=== PATIENT | male | born 1975 | race Caucasian/White ===

== ENCOUNTER → 2022-05-12 10:35 | Outpatient (CLI) | payer OTHER, SELFPAY ==
--- NOTE | 2022-05-12 10:48 | DI.MRI.S_ITS ---
PROCEDURE: MR ANKLE RT WO CON INDICATIONS: JOINT DISORDERS, RIGHT ANKLE TECHNIQUE: Noncontrast sagittal T1 spin echo and T2 fast spin echo with fat saturation, axial proton density fast spin echo and T2 fast spin echo with fat saturation, coronal T1 spin echo and T2 fast spin echo with fat saturation through the ankle/hindfoot. COMPARISON: None. FINDINGS: Image quality: Excellent. Bones and joints: Osteochondral injury in medial weight-bearing portion of talar dome is seen measures 4 x 4 x 7 mm in size with mild surrounding edema. No fracture or dislocation. No other area of abnormal marrow signal. No suspicious intraosseous lesion. No significant joint effusion is seen. Medial structures: The posterior tibialis is mildly thickened at the level of distal talus/talonavicular joint with small amount of fluid distending tendon sheath. The flexor digitorum longus, and flexor hallucis longus tendons are intact. The posterior tibial neurovascular bundle appears normal within the tarsal tunnel, without extrinsic mass effect. Thickened deltoid ligament and spring ligament complex is noted suggestive of medial ankle ligament sprain/low-grade partial-thickness tear. Lateral structures: The anterior talofibular, calcaneofibular, and posterior talofibular ligaments appear slightly attenuated with intrasubstance T2 hyperintense signal. More superiorly, the anterior and posterior tibiofibular ligaments appear intact, as is the intermalleolar ligament. The tibiofibular syndesmosis is normal in width at 2 mm or less. The peroneus longus and brevis tendons demonstrate normal location and morphology. Adjacent bony peroneal tubercle and retrotrochlear prominence are normal in size. The sinus tarsi demonstrates normal fatty signal, without edema, fibrosis, or cyst formation. Visualized sinus tarsi components (cervical ligament, interosseous talocalcaneal ligament, roots of the inferior extensor retinaculum) appear normal. The calcaneonavicular and calcaneocuboid components of the bifurcate ligament appear intact. The dorsal calcaneocuboid ligament appears intact. Anterior structures: The tibialis anterior, extensor hallucis longus, and extensor digitorum longus tendons appear intact. The dorsal talonavicular ligament appears intact. Posterior and plantar structures: Achilles tendon is intact. Medial and lateral bands of the plantar fascia are of normal thickness. No abductor digiti quinti muscle atrophy to suggest Millan neuropathy. IMPRESSION: 1. 4 x 4 x 7 mm osteochondral injury involving medial weight-bearing portion of talar dome. No other area of abnormal marrow signal. No fracture or dislocation. No significant joint effusion. 2. [id number] medial ankle ligament sprain/partial-thickness tear. Low-grade tenosynovitis involving posterior tibialis tendon at the level of distal talus/talonavicular joint. 3. Mild lateral ankle ligament sprain/partial-thickness tear. Dictated by: David Ellis M.D. on 05/12/2022 at 13:24 Approved by: David Ellis M.D. on 05/12/2022 at 13:27
== END ==
PROVIDERS: PCP Internal Medicine; Referring Provider Internal Medicine; Visit Provider Internal Medicine
DX: S93.491A Sprain of other ligament of right ankle, initial encounter (principal); M65.871 Other synovitis and tenosynovitis, right ankle and foot; M25.871 Other specified joint disorders, right ankle and foot
CPT/HCPCS: 73721

== ENCOUNTER 2023-05-08 10:41 | Day surgery (SDC) | payer OTHER, SELFPAY ==
[2023-05-05 14:57] VITALS: BMI 35.5
[2023-05-08] VITALS (7 sets, daily range): BP systolic 105–150; BP diastolic 74–99; PULSE 63–99; RESP 15–19; TEMP 36.1–36.4; O2SAT 92–98; BMI 35.5
[2023-05-08] MEDS: LACTATED RINGERS 1,000 ML 42 ML IV ×2 (13:28→17:32)
--- NOTE | 2023-05-08 14:23 | P.HP_ITS ---
History of Present Illness History of Present Illness Date Patient Seen: 05/08/23 Time Patient Seen: 14:23 Chief complaint: Right Arthroscopy Ankle/Ankle Stabilization Narrative: 47-year-old male 4 years of ankle pain no particular injury but constant pain with weight-bearing and recurrent instability. Had an MRI that demonstrated sequela of an ankle sprain and small medial talar dome osteochondral lesion. Endorses pain has been getting worse over the last year and his ankle has been giving out more including rolling. He had a diagnostic and therapeutic injection last year that did not provide any significant relief. This is pain and instability. Medical history of hypertension. Completed more than 3 months of focused ankle physical therapy with continued pain [facility] Medical History Back pain Carpal tunnel syndrome Epicondylitis, lateral, right HTN (hypertension) Insulin resistance Onychomycosis Surgical History History of cholecystectomy Social History household members: family Smoking Status: Never smoker alcohol intake: former Meds Home Medications and Allergies Home Medications Medication Instructions Recorded Confirmed Type lisinopril 20 mg tablet 20 mg PO DAILY 05/08/23 05/08/23 History triamterene-hydrochlorothiazid 25 mg PO DAILY 05/08/23 05/08/23 History Allergies Allergy/AdvReac Type Severity Reaction Status Date / Time bee venom protein (honey bee) Allergy Verified 05/05/23 15:12 Review of Systems Review of Systems ROS: Yes All systems reviewed with the patient and are negative except as otherwise documented Exam Vital Signs (past 8 hours): - 05/08/23 13:04 Temperature 96.9 F L Pulse Rate 63 Respiratory Rate 18 Blood Pressure 150/99 H Pulse Oximetry 97 Oxygen Delivery Method Room Air Oxygen Delivery Method Room Air Narrative Exam Narrative: Alert oriented male no acute distress BMI 35.5. General exam oriented. No obvious distress. Cardiovascular regular rate and rhythm. Respiratory lungs clear to auscultation bilaterally. Gait full weight-bearing without assistive devices. Right lower extremity with grossly normal alignment range of motion and strength. There is tenderness to palpation anterior tibiotalar joint and the medial gutter and over the lateral ligaments. Proximally 5 mm increased anterior drawer compared to contralateral side. No subluxation or dislocation the peroneal tendons. Tenderness around the Achilles but Achilles intact and no swelling. Negative [place]. Assessment & Plan Assessment and plan (1) Right ankle instability: Status: Acute (2) Osteochondral lesion of talar dome: Status: Acute Plan Patient is a 47-year-old male with chronic right ankle pain osteochondral defect and ankle instability. He is had more episodes of giving out and instability. He did not get relief from corticosteroid injection and had extensive conservative treatment with formal physical therapy and bracing. He has been indicated for arthroscopic debridement of osteochondral lesion and ligament, laterally reconstruction. Postoperatively he will be 4 weeks nonweightbearing in the splint for the 1st 2 weeks and then in a walking boot. He will start progressive weight-bearing after 4 weeks and start weaning from the boot 8-10 weeks postop. Quality VTE Deep Vein Thrombosis/Pulmonary Embolism Present on Admission: No
--- NOTE | 2023-05-08 14:49 | SUR.PREOP ---
[]. 1442 - Monitoring initiated and maintained throughout procedure. 1143 - Time out performed. Pt placed on 2LNC. Medications given by Cj Childress CRNA. 1456 - Injection time. 1458 - Block completed. Pt remained stable throughout procedure. No adverse reactions noted.
[2023-05-08] MEDS: CEFAZOLIN 2 GM/100 ML PREMIX 100 ML IV (15:02)
--- NOTE | 2023-05-08 15:27 | SUR.OPER ---
For arthroscopy: Supine on padded OR bed, head on pillow, arms secured on padded arm boards at <90 degrees abduction, left leg on table with tape over blanket, right, operative leg on padded well leg reaves-under control of surgeon, safety belt at waist. For microfracture: Leg removed from well leg reaves and on table under control of surgeon.
[2023-05-08] MEDS: BUPIVACAINE 0.25% W/ EPI (PF) 10 ML VIAL 20 ML INJ (15:45)
--- NOTE | 2023-05-08 17:23 | P.OP_ITS ---
Operative Date/Time/Diagnoses Date of procedure: 05/08/23 Time of procedure: 15:30 Pre-op diagnosis: Osteochondral defect talus, right Instability ankle joint right Post-op diagnosis: same Procedure & Clinicians Procedure: Arthroscopic microfracture and debridement osteochondral defect talus CPT code 57134, right Repair ankle lateral ligament Brostrom Fung modification procedure CPT code [id number] for separate site, separate incision Same procedure as scheduled: Yes Indications: Patient is a 47-year-old male with a greater than 4 years of right ankle pain and worsening pain and instability with multiple recurrent rolling events. He is found to have a medial talar dome osteochondral lesion and a sequelae of ankle sprain with lateral ligament instability. He was indicated for arthroscopic debridement and microfracture talar dome lesion and Brostrom lateral ligamentous reconstruction. The risks and benefits of the procedure have been discussed with the patient and given the opportunity to ask questions. The risks of surgery include but are not limited to infection, malunion, nonunion, persistence of pain, damage to nerves and blood vessels, posttraumatic arthritis, DVT, PE, cardiopulmonary complications and . The patient expressed a thorough understanding of the risks and benefits of surgery and has elected to proceed. Consent was signed. Surgeon: Frida Recinos Click Yes if Unassisted: Yes Anesthesia Type: General, Peripheral nerve block and Local Operative Notes Findings: Small medial shoulder talar dome osteochondral defect proximally 4 x 8 mm loose osteochondral fragment removed. This was debrided with a shaver and microfractured. Separate 3 x 3 partial-thickness cartilage lesion lateral talar dome that was debrided. Mild synovitis Closure Type: primary Specimen(s): none sent Prosthetic devices, grafts, tissues, transplants, or devices: Arthrex fiber taks x2 Arthrex internal brace Estimated Blood Loss (mL): 20 Blood products transfused: none Tourniquet time (min): 78 Procedure in detail: Patient was seen in the preoperative area the site of surgery was marked informed consent confirmed. The patient was brought back to the operating room by anesthesia team. A regional block was placed for postoperative pain control by the anesthesia team. The right lower extremity was prepped and draped in the standard sterile fashion a nonsterile thigh tourniquet was applied. Formal time-out procedure was performed confirming the patient's side and site of surgery administration of appropriate preoperative antibiotic. All were in agreement Attention was turned to the ankle arthroscopy procedure. The thigh and placed in a well leg reaves that was well padded. The portal sites were marked out on the ankle and the standard anterolateral anteromedial portal. The noninvasive distractor was set up. Joint was injected with 10 cc of 0.25% Marcaine. The medial portal was established through the standard sage and spread technique. Then the lateral portal was established with care to avoid the superficial peroneal nerve branch. The arthroscopic instruments were inserted. There was mild synovitis encountered. The shaver was introduced and debrided the anterior joint. The tibiotalar joint was then inspected. The small medial shoulder osteochondral defect was then identified and debrided as mentioned in the findings. Next looking laterally there was a partial-thickness delamination laterally this was debrided and the loose cartilage fragment removed. This was not a full-thickness lesion. The medial osteochondral lesion was full- thickness. Once the medial ACL was debrided this was then micro fractured. The joint was debrided and flushed and the instruments removed. This ended the arthroscopic procedure. Attention was then turned to the Brostrom. The scope portals had been closed the well leg reaves was removed and attention was turned to the lateral ankle. Separate incision was made along the posterolateral fibula over the sinus tarsi and course of the lateral ankle ligaments. This was taken down through the skin subcutaneous tissue. The periosteum was reflected off the distal fibula. There was copious fat in this area that was debrided. The lateral ankle ligaments were attenuated these were released from the fibula reflected distally. The end of the distal fibula was debrided with a rongeur and insertion sites for the FiberTak was prepared. Next a rent in the ligament and extensor retinaculum distally was made down to the talus for the internal brace talar anchor. The guidewire was drilled and the C-arm was brought in in the lateral position to confirm appropriate placement. This was then over-drilled and tapped with the 3.5 then the 4.75 tap. The 4.75 anchor was then placed with good bite in position. This was brought up through the extensor retinaculum. Then attention was turned back to the fibula. The proposed anchor site for the 3.5 anchor for the internal brace was drilled centrally at the distal fibula and held in position while the 2 FiberTak ATFL reconstruction sites were were drilled proximally and distally to the 3.5 guide. Next the fiber tacks were placed. These each had 2 needles and FiberTape attached these were then brought through the lateral ligaments in a horizontal mattress fashion. The foot was then held in dorsiflexion eversion and the horizontal mattress sutures were tied for the Brostrom reconstruction. Next the tails for the internal brace were brought through the SwiveLock and this was taken down to the fibular hole and then measured to the distance of the anchor and this was marked and then the anchor was slid back along the sutures to make sure it was not be too tight. Additionally hemostat was placed under the brace while this was advanced into the fibular hole and then screwed in in the standard fashion. Once this was completed this completed the Brostrom and internal brace reconstruction. The an terior drawer and talar tilt was rock solid. And the sutures were cut. 2-0 Vicryl was used to reinforce the reconstruction. Then 2-0 Vicryl was used in the subcutaneous tissue followed by 4-0 Monocryl and 3-0 nylon suture. The tourniquet was released prior to final wound closure. An additional 10 cc of local anesthetic was infiltrated into the subcutaneous tissues and then back into the ankle joint for anesthetic. And a sterile dressing was placed with Xeroform gauze Webril and a plaster U splint in slight dorsiflexion eversion. Complications: none Post-operative Condition: stable Disposition: PACU Plan for aftercare: Nonweightbearing x4 weeks then progressive weight-bearing in a boot. Keep splint clean dry and intact. Elevate heart level as much as possible for the 1st 2 weeks to help incision healing and pain. Follow-up in 2 weeks in [facility] for transition to a boot and initiation of therapy. Aspirin for DVT prophylaxis.
== END 2023-05-08 18:15 | disposition home or self-care (01) ==
PROVIDERS: PCP Internal Medicine; Referring Provider Orthopaedic Surgery Foot and Ankle Surgery; Visit Provider Orthopaedic Surgery Foot and Ankle Surgery
PROC: (CPT 27698; principal; 2023-05-08 14:45)
PROC: (CPT 27698; 2023-05-08 14:45)
DX: M25.371 Other instability, right ankle (principal); M95.8 Other specified acquired deformities of musculoskeletal system; S93.401S Sprain of unspecified ligament of right ankle, sequela; G89.18 Other acute postprocedural pain; I10 Essential (primary) hypertension
CPT/HCPCS: 27698; 29891; 64450; J0690; J1100; J2250; J2405; J2704; J3010